=== PATIENT | male | born 1965 | race Two or more races ===

== ENCOUNTER 2018-10-29 13:32 | Outpatient (CLI) | payer MEDICAID ==
[~2018-10-29 13:32] MED LIST: BENZ1TAB7 PO; DIPH-423 PO; GUAI120L55 PO; OXYC-145 PO; RISP0.2555 PO; SERT25TA PO; ZIPR20CA2 PO
[2018-10-29 13:37] VITALS: BP 131/85
== END 2018-10-29 14:28 | disposition home or self-care (01) ==
LOC: ORTHO 13:32
PROVIDERS: ATTEND Nurse Practitioner Family
DX: M25.512 Pain in left shoulder (principal); G89.29 Other chronic pain; F17.210 Nicotine dependence, cigarettes, uncomplicated; F12.90 Cannabis use, unspecified, uncomplicated; J44.9 Chronic obstructive pulmonary disease, unspecified; I10 Essential (primary) hypertension
CPT/HCPCS: G0463